=== PATIENT | female | born 1980 | race Caucasian/White ===

== ENCOUNTER 2017-01-26 12:18 | Emergency (ER) | payer SELFPAY ==
[2017-01-26] MEDS ORDERED: Lidocaine 1% (PF) 30 ML VIAL ONE (12:50)
[2017-01-26] MEDS ORDERED: Bacitracin Zinc 1 Packet ONE (13:29)
== END 2017-01-26 14:32 | disposition home or self-care (01) ==
LOC: ERS 12:18
DX: S01.81XA Laceration without foreign body of other part of head, initial encounter (principal); S80.02XA Contusion of left knee, initial encounter; F43.10 Post-traumatic stress disorder, unspecified; F32.9 Major depressive disorder, single episode, unspecified; F17.210 Nicotine dependence, cigarettes, uncomplicated; W18.30XA Fall on same level, unspecified, initial encounter; Y93.02 Activity, running
CPT/HCPCS: 12011; J2001

== ENCOUNTER 2017-02-10 05:32 | Emergency (ER) | payer SELFPAY ==
[2017-02-10] MEDS ORDERED: Bacitracin Zinc 1 Packet ONE (05:41)
== END 2017-02-10 05:55 | disposition home or self-care (01) ==
LOC: ERS 05:32
DX: S01.81XD Laceration without foreign body of other part of head, subsequent encounter (principal); F43.10 Post-traumatic stress disorder, unspecified; F17.210 Nicotine dependence, cigarettes, uncomplicated; X58.XXXD Exposure to other specified factors, subsequent encounter
CPT/HCPCS: 99406

== ENCOUNTER 2017-10-19 09:49 | Emergency (ER) | payer SELFPAY ==
[2017-10-19 10:49] LABS: Bilirubin Small (Negative); Blood, Urine Moderate (Negative); Clarity TURBID (Clear); Glucose, Urine (Dipstick) Negative (Negative); Leukocyte Moderate (Negative); Nitrite Negative (Negative); Protein, Urine (Dipstick) 100 mg/dL (Neg-Trace); Specific Gravity, Urine 1.033 (1.002-1.036); pH, Urine 5.5 (5.0-9.0)
[2017-10-19 10:51] LABS: Squamous Epithelial 21-50 HPF (0-3)
[2017-10-19 10:56] LABS: Pathc Cast-AUWi Flag 3.63 (0-2.49)
[2017-10-19 10:57] LABS: Pregnancy Test - Urine (BHCG) Negative (Negative); Pregu Control Background? CLEAR/WHITE (CLR/WHITE); Pregu Control Bar Appear? YES (CONTROL BAR); Specific Gravity 1.033 (1.002-1.036)
[2017-10-19 11:05] LABS: Bacteria/HPF 3+ HPF (None Seen); Hyaline Casts/LPF 4-6 HYALINE CAST LPF (0-3 Hyaline); Manual Microscopic Reviewed? No Path Casts Seen
[2017-10-21 05:45] LABS: Chlamydia by PCR Not Detected (NotDetected); GC by PCR Not Detected (NotDetected)
== END 2017-10-19 13:58 | disposition home or self-care (01) ==
LOC: ERS 09:49
DX: A59.01 Trichomonal vulvovaginitis (principal); F41.9 Anxiety disorder, unspecified; F42.9 Obsessive-compulsive disorder, unspecified; F43.10 Post-traumatic stress disorder, unspecified; F17.210 Nicotine dependence, cigarettes, uncomplicated; Z79.899 Other long term (current) drug therapy
CPT/HCPCS: 81003; 81015; 81025; 87480; 87491; 87510; 87591; 87660; 99283

== ENCOUNTER 2018-07-27 15:30 | Inpatient (IN) | payer MEDICAID, OTHER ==
[2018-07-27] MEDS ORDERED: Zolpidem Tartrate 5 MG TAB PO PRN (16:19)
[2018-07-27] MEDS ORDERED: Diphenoxylate HCl/Atropine Tablet PO PRN ×2 (16:19)
[2018-07-27] MEDS ORDERED: Misoprostol 200 MCG TAB PR PRN (16:19)
[2018-07-27] MEDS ORDERED: Lidocaine 1% (PF) 30 ML VIAL SC PRN (16:19)
[2018-07-27] MEDS ORDERED: HYDROcodone/Acetaminophen 5/325 mg Tablet PO PRN ×2 (16:19)
[2018-07-27] MEDS ORDERED: Ondansetron PF 4 MG/2 ML Vial IVP PRN (16:19)
[2018-07-27] MEDS ORDERED: NS / Oxytocin 40 units/1000ml 1,000 ML IV PRN ×2 (16:19→16:24)
[2018-07-27] MEDS ORDERED: Promethazine HCl 25 MG/ML VIAL IM PRN (16:19)
[2018-07-27] MEDS ORDERED: Ibuprofen 800 MG TAB PO PRN (16:19)
[2018-07-27] MEDS ORDERED: Butorphanol Tartrate 1 MG/ML VIAL SLOW IVP PRN (16:19)
[2018-07-27] MEDS ORDERED: Docusate 100 MG CAP PO PRN (16:19)
[2018-07-27] MEDS ORDERED: Carboprost 250 MCG/ML AMP IM PRN (16:19)
[2018-07-27] MEDS: Lactated Ringer's 1,000 ML IV SCH ×2 (16:22→23:20)
[2018-07-27 16:24] VITALS: BMI 31.6
[2018-07-27] MEDS ORDERED: Penicillin G Potassium 5 MILL.UNITS in Sodium Chloride 0.9% 100 ML IVPB SCH (16:30)
[2018-07-27] MEDS ORDERED: NS w/ Oxytocin 10 units 500 ML IV SCH ×2 (16:30)
[2018-07-27 16:45] LABS: Hemoglobin 11.7 g/dL (12.0-16.0); Mean Corpuscular HGB CONC 35.5 g/dL (32.0-36.0); Mean Corpuscular Hemoglobin 32.5 pg (27.0-31.0); Mean Corpuscular Volume 91.6 fL (78.0-98.0); Mean Platelet Volume 7.9 fL (7.4-10.4); Platelet Count 199 thou/uL (130-400); RBC Distribution Width 11.7 % (11.5-14.5); Red Blood Cell (RBC) Count 3.59 mill/uL (4.20-5.40); White Blood Cell (WBC) Count 11.8 thou/uL (4.8-10.8)
[2018-07-27 17:27] LABS: HBSAg Index 0.48 S/CO (0-0.99); Hep B Surf Ag Non-Reactive S/CO (NonReactive)
[2018-07-27 17:28] LABS: Syphilis Antibody Nonreactive (Nonreactive); Syphilis Antibody Index 0.03 S/CO (<1.00 Non-Reactive)
[2018-07-27] MEDS ORDERED: Fentanyl 4 mcg/Bup 0.1% Cadd 100 ML ONE (23:07)
[2018-07-27] MEDS ORDERED: Fentanyl 100 MCG/2 ML VIAL ONE (23:40)
[2018-07-28] MEDS: Penicillin G 2.5 MILL.units 2.5 MILL.UNITS in Premix Bag 1 BAG IVPB SCH ×5 (00:30→17:22)
[2018-07-28] MEDS ORDERED: Hydrocerin (Eucerin) Cream 120 gm Jar TOP PRN (01:05)
[2018-07-28] MEDS ORDERED: Acetaminophen 325 MG TAB PO PRN (01:05)
[2018-07-28] MEDS ORDERED: Promethazine HCl 25 MG/ML VIAL IM PRN ×2 (01:05→20:19)
[2018-07-28] MEDS ORDERED: ePHEDrine/0.9% NaCl/PF SYRINGE 50 mg/10 ml SLOW IVP PRN (01:05)
[2018-07-28] MEDS ORDERED: Lactated Ringer's 500 ML IV PRN (01:05)
[2018-07-28] MEDS ORDERED: Naloxone HCl 0.4 mg/ml Vial IVP PRN ×2 (01:05)
[2018-07-28] MEDS ORDERED: Ondansetron PF 4 MG/2 ML Vial IVP PRN ×2 (01:05→20:19)
[2018-07-28] MEDS ORDERED: Communication Order-Pharmacy FS SCH (01:15)
[2018-07-28] MEDS: Fentanyl 4 mcg/Bupivacaine 0.1% Cassette 100 ML EPIDURAL SCH ×2 (02:29→13:22)
[2018-07-28] MEDS: diphenhydrAMINE 50 MG/ML VIAL IVP PRN ×2 (03:55→10:15)
[2018-07-28] MEDS: Lactated Ringer's 1,000 ML IV SCH ×2 (05:39→15:26)
[2018-07-28] MEDS ORDERED: Fentanyl 4 mcg/Bup 0.1% Cadd 0 ML ONE (08:03)
--- NOTE | 2018-07-28 08:39 | PDOC.LDHP ---
Labor and Delivery H&P HPI: 38 y/o at 38 wks and 3 days with AMA, Hx of who desires TOLAC , GHTN who today complains of severely decreased movement and has a 6/8 BPP (-2 for Tone) in clinic today. Will sent to [facility] L&D for medical induction (baloon) and TOLAC. Current gestational age (weeks): 38 Due date: 08/07/18 Grav: 3 Para: 2 Current complications: gestational hypertension Abnormal US findings: Yes (6/8 BPP) Current medications: pre- vitamins Previous surgical history: low tranverse CS Allergies/Adverse Reactions: Allergies Allergy/AdvReac Type Severity Reaction Status Date / Time No Known Drug Allergies Allergy Verified 07/27/18 16:20 Social history: none - Physical Exam Vital signs reviewed and normal: yes General: NAD, resting, breathing through contractions Heart: RRR Lungs: nonlabored breathing Abdomen: NTTP Extremeties: no edema FHT: category 1 - Assessment L&D Assessment: medically indicated induction - Plan Plan: admit to L&D, cervical ripening
[2018-07-28] MEDS ORDERED: Fentanyl 4 mcg/Bup 0.1% Cadd 100 ML ONE (13:21)
[2018-07-28] MEDS ORDERED: Bisacodyl 10 MG SUPP PR PRN (20:19)
[2018-07-28] MEDS ORDERED: Milk Of Magnesia 30 ML UDCUP PO PRN (20:19)
[2018-07-28] MEDS ORDERED: Preparation H Ointment 28 GM TUBE PR PRN (20:19)
[2018-07-28] MEDS ORDERED: HYDROcodone/Acetaminophen 5/325 mg Tablet PO PRN ×2 (20:19)
[2018-07-28] MEDS ORDERED: diphenhydrAMINE 25 MG CAP PO PRN (20:19)
[2018-07-28] MEDS ORDERED: Zolpidem Tartrate 5 MG TAB PO PRN (20:19)
[2018-07-28] MEDS ORDERED: Benzocaine-Menthol 82.5 ML CAN TOP PRN (20:19)
[2018-07-28] MEDS ORDERED: NS / Oxytocin 40 units/1000ml 1,000 ML IV SCH (20:19)
[2018-07-28] MEDS ORDERED: Lanolin Ointment 7 GM TUBE TOP PRN (20:19)
[2018-07-28] MEDS: Ibuprofen 800 MG TAB PO SCH (22:30)
[2018-07-29] MEDS: Docusate Calcium (SURFAK) 240 MG CAP PO SCH ×3 (06:20→21:01)
[2018-07-29] MEDS: Ibuprofen 800 MG TAB PO SCH ×3 (06:25→23:54)
[2018-07-29] MEDS: Prenatal Vitamin 1 TAB PO SCH (08:49)
[2018-07-29] MEDS: Ferrous Sulfate 325 MG TAB PO SCH ×2 (08:50→16:53)
[2018-07-29 08:57] LABS: Hemoglobin 10.6 g/dL (12.0-16.0); Mean Corpuscular HGB CONC 35.2 g/dL (32.0-36.0); Mean Corpuscular Hemoglobin 32.7 pg (27.0-31.0); Mean Corpuscular Volume 92.9 fL (78.0-98.0); Mean Platelet Volume 8.2 fL (7.4-10.4); Platelet Count 184 thou/uL (130-400); RBC Distribution Width 11.6 % (11.5-14.5); Red Blood Cell (RBC) Count 3.24 mill/uL (4.20-5.40); White Blood Cell (WBC) Count 16.4 thou/uL (4.8-10.8)
[2018-07-29] MEDS ORDERED: Measles/Mumps/Rubella 10 MCG/0.5 ML VIAL SC ONE (09:00)
[2018-07-29] MEDS ORDERED: Varicella virus, LIVE 0.5 ML VIAL SC ONE (09:00)
[2018-07-29] MEDS ORDERED: Adacel (T-DAP) 0.5 ML SYRINGE IM ONE (09:00)
[2018-07-29] MEDS: Lactated Ringer's 1,000 ML IV SCH (11:53)
[2018-07-29] MEDS: Penicillin G 2.5 MILL.units 2.5 MILL.UNITS in Premix Bag 1 BAG IVPB SCH (11:53)
--- NOTE | 2018-07-29 19:01 | PDOC.PP ---
Post Progress Note Post Day #: 1 PO intake tolerated: yes Flatus: yes Ambulation: yes Vital Signs (12 hours) Temp Pulse Resp BP BP Pulse Ox 07/29/18 17:20 98.5 F 88 18 137/78 07/29/18 10:15 97.9 F 87 18 146/87 H 100 Weight Weight 196 lb - Physical Examination General: NAD Cardiovascular: no m/r/g, RRR Respiratory: clear to auscultation bilaterally, non-labored breathing Abdominal: + bowel sounds, lochia, no distention, appropriately TTP Extremities: negative homans (B) Neurological: no gross focal deficits Psychiatric: A&Ox3 (DC tomorrow), normal affect Result Diagrams: 07/29/18 08:32 Additional Labs: Post Labs Blood Type O NEGATIVE 07/27/18 16:38 Hep Bs Antigen Non-Reactive S/CO (NonReactive) 07/27/18 16:37
[2018-07-30 05:46] VITALS: TEMP 97.5
[2018-07-30] MEDS: Ibuprofen 800 MG TAB PO SCH (06:14)
[2018-07-30] MEDS: Ferrous Sulfate 325 MG TAB PO SCH (07:25)
--- NOTE | 2018-07-30 08:05 | DN ---
DATE OF PROCEDURE: 07/28/2018 DATE OF SERVICE: 07/28/2018, at 1813, [place] daylight savings time. PREOPERATIVE DIAGNOSES: Intrauterine at 38 weeks and 4 days with a history of gestational hypertension, decreased movement on the day of clinic visit on 07/27/2018 and 6/8 biophysical profile with -2 for tone. POSTOPERATIVE DIAGNOSES: Intrauterine at 38 weeks and 4 days with a history of gestational hypertension, decreased movement on the day of clinic visit on 07/27/2018 and 6/8 biophysical profile with -2 for tone. PROCEDURE: Spontaneous vaginal delivery over intact perineum. FINDINGS: Viable female , weighing 2802 g or 6 pounds 3 ounces. Apgars of 8 and 9. Hemostatic first-degree lacerations intra-labial bilaterally that did not require suturing. QUANTITATIVE BLOOD LOSS: 495 mL. PROCEDURE IN DETAIL: The patient presented to [facility] where she was admitted to the labor and delivery service. The patient underwent a normal and uneventful labor with normal cervical dilatation until she was found to be completely dilated. She was then allowed to push and was able to bring the baby down and delivered the baby in a vertex presentation without difficulties. Once the head delivered in occiput anterior position, the shoulders followed spontaneously along with the rest of the baby's body. Once out the baby's mouth and nose were bulb suctioned. The cord was clamped and cut and baby was handed to waiting attendants. Cord blood was collected. Gentle fundal massage was performed and the placenta delivered intact without problems. Hemostasis was assured. Quantitative blood loss was calculated. Inspection of the cervix, vaginal vault, and perineum did not reveal any lacerations needing suturing. Once again, hemostasis was within normal limits and the patient was allowed to recover in the labor and delivery room. Baby went to nursery. Job ID: [id number]
[2018-07-30 08:11] VITALS: BP 142/87
[2018-07-30] MEDS: Docusate Calcium (SURFAK) 240 MG CAP PO SCH (11:35)
[2018-07-30] MEDS: Prenatal Vitamin 1 TAB PO SCH (11:35)
== END 2018-07-30 13:15 | disposition home or self-care (01) | DRG 807 ==
LOC: L&D 15:30 → EEVIPCON 15:30 → 3SW 07-29 10:32
PROVIDERS: ADMIT Obstetrics & Gynecology; ATTEND Obstetrics & Gynecology
PROC: 10E0XZZ Delivery of Products of Conception, External Approach (ICD-10-PCS; principal; 2018-07-28)
DX: O34.211 Maternal care for low transverse scar from previous cesarean delivery (principal); Z37.0 Single live birth; Z3A.38 38 weeks gestation of pregnancy; O13.4 Gestational [pregnancy-induced] hypertension without significant proteinuria, complicating childbirth
CPT/HCPCS: 36415; 51702; 85027; 85461; 86780; 86850; 86870; 86900; 86901; 87340; 90384; 96372; C1726; J0595; J1200; J2001; J2540; J2590; J3010; J3490

== ENCOUNTER 2019-02-25 15:38 | Emergency (ER) | payer OTHER ==
[~2019-02-25 15:38] MED LIST: Iopamidol-370 76% 500 ML 1 ML ONE
--- NOTE | 2019-02-25 16:23 | RAD ---
Exam: Chest one view HISTORY:Productive cough, times several weeks Comparison: None FINDINGS: Cardiac silhouette: Normal Aorta: Unremarkable Pulmonary vessels: Normal Costophrenic angles: Clear LUNGS: No masses or consolidation. Pneumothorax: None Osseous abnormalities: None IMPRESSION: No acute cardiopulmonary process.
[2019-02-25 16:24] LABS: #Basophils 0.1 thou/uL (0.0-0.2); #Eosinphils 0.1 thou/uL (0.0-0.7); #Lymphocytes 2.2 thou/uL (1.20-3.40); #Monocytes 0.8 thou/uL (0.11-0.59); #Neutrophils 9.4 thou/uL (1.40-6.50); %Basophils 1.1 % (0.0-1.0); %Eosinophils 0.5 % (0.0-10.0); %Lymphocytes 17.5 % (21.0-51.0); %Monocytes 6.1 % (0.0-10.0); %Neutrophils 74.7 % (42.0-75.0); Hemoglobin 14.9 g/dL (12.0-16.0); Mean Corpuscular HGB CONC 34.3 g/dL (32.0-36.0); Mean Corpuscular Hemoglobin 30.6 pg (27.0-31.0); Mean Corpuscular Volume 89.4 fL (78.0-98.0); Mean Platelet Volume 7.8 fL (7.4-10.4); Platelet Count 306 thou/uL (130-400); RBC Distribution Width 11.9 % (11.5-14.5); Red Blood Cell (RBC) Count 4.88 mill/uL (4.20-5.40); White Blood Cell (WBC) Count 12.5 thou/uL (4.8-10.8)
[2019-02-25 16:45] LABS: ALT (SGPT) 9 U/L (8-55); AST (SGOT) 11 U/L (5-34); Albumin 4.7 g/dL (3.5-5.0); Alkaline Phosphatase 94 U/L (40-110); Anion Gap 12 mmol/L (10-20); BUN (Urea Nitrogen) 15 mg/dL (7.0-18.7); Bilirubin, Total 0.2 mg/dL (0.2-1.2); Calc. Creatinine Clearance 0 mL/min (70-130); Calcium 9.8 mg/dL (7.8-10.44); Carbon Dioxide 29 mmol/L (22-29); Chloride 103 mmol/L (98-107); Estimated GFR-MDRD 70; Globulin 3.4 g/dL (2.4-3.5); Glucose 113 mg/dL (70-105); Potassium 3.6 mmol/L (3.5-5.1); Protein, Total 8.1 g/dL (6.0-8.3); Sodium 140 mmol/L (136-145)
--- NOTE | 2019-02-25 17:33 | CT ---
CTA Angio Chest W WO Con 02/25/2019 4:56 PM Indication: Chest pain and productive cough with congestion and shortness of breath Technique: Multiple CTA images were obtained of the thorax with IV contrast. 3-D rendering: MIP [place] nstructed images were created and reviewed. Comparison: Chest radiograph dated February 25, 2019 Findings: Pulmonary arteries: No central or segmental pulmonary embolus is evident. Heart and Aorta: Normal appearing. Mediastinum:Normal appearing. No enlarged lymph nodes. Lungs:The lungs are clear. Pleural space: Clear. Upper Abdomen: No acute abnormality. Osseous Structures: There is scattered degenerative and osteoarthritic change present. No acute frac ture or subluxation demonstrated. Soft tissues:No abnormality. Other findings:None. Impression: No central or segmental pulmonary embolus.
[2019-02-25 19:23] LABS: Troponin I Less than 0.010 ng/mL (< 0.028)
== END 2019-02-25 20:00 | disposition home or self-care (01) ==
LOC: ERS 15:38
DX: R07.9 Chest pain, unspecified (principal); F41.9 Anxiety disorder, unspecified; F42.9 Obsessive-compulsive disorder, unspecified; F43.10 Post-traumatic stress disorder, unspecified; F31.9 Bipolar disorder, unspecified; F17.210 Nicotine dependence, cigarettes, uncomplicated; Z79.899 Other long term (current) drug therapy
CPT/HCPCS: 36415; 71045; 71275; 80053; 84484; 85025; 85379; 93005; Q9967